=== PATIENT | male | born 1930 ===

== ENCOUNTER 2017-09-12 09:11 | Inpatient (IN) | payer MEDICARE ==
[2017-09-12 09:15] VITALS: BMI 30.1
--- NOTE | 2017-09-12 09:44 | ED PDOC ---
Syncope/Near Syncope/Dizziness Time Seen by Provider: 09/12/17 09:17 Chief Complaint (Nursing): Syncope Chief Complaint (Provider): Syncope History Per: Patient History/Exam Limitations: no limitations Onset/Duration Of Symptoms: Days Current Symptoms Are (Timing): Still Present Additional Complaint(s): 87 year old male with a past medical history of diabetes, HTN, and high cholesterol presents to the ED after a syncopal episode this morning, witnessed by son at bedside. Patient suddenly put his head down on the table and passed out for about two minutes. Patient did not fall or hit his head. Patient states he took a laxative last night. Denies fever, vomiting, chest pain, and dizziness. Patient has never syncopized in the past and reports he feels much better now. PMD: Dr. Isidoro Hand Past Medical History Reviewed: Historical Data, Nursing Documentation, Vital Signs Vital Signs: Last Vital Signs Temp 97 F L 09/12/17 09:14 Pulse 92 H 09/12/17 09:14 Resp BP 121/78 09/12/17 09:14 Pulse Ox 100 09/12/17 09:14 - Medical History PMH: HTN, Hypercholesterolemia - Surgical History Surgical History: Cholecystectomy - Family History Family History: States: Unknown Family Hx - Social History Current smoker - smoking cessation education provided: No Alcohol: None Drugs: Denies - Home Medications Home Medications: Ambulatory Orders Medication Instructions Recorded Furosemide [Lasix] 40 mg PO BID 09/12/17 Ibuprofen [Ibu] 400 mg PO Q6H PRN 09/12/17 Isosorbide Mononitrate [Isosorbide 30 mg PO DAILY 09/12/17 Mononitrate ER] Tamsulosin [Flomax] 0.4 mg PO DAILY 09/12/17 Vit B12/Levomefolate/Vit B6/B2 1 tab PO DAILY 09/12/17 [Cerefolin 1 mg-5.635 mg-50 mg-5 mg] metFORMIN [glucOPHAGE] 500 mg PO BID 09/12/17 - Allergies Allergies/Adverse Reactions: Allergies Allergy/AdvReac Type Severity Reaction Status Date / Time No Known Allergies Allergy Verified 09/12/17 09:21 Review of Systems ROS Statement: Except As Marked, All Systems Reviewed And Found Negative Constitutional: Negative for: Fever Cardiovascular: Negative for: Chest Pain Gastrointestinal: Negative for: Vomiting Neurological: Positive for: Other (syncopal episode). Negative for: Dizziness Physical Exam - Reviewed Nursing Documentation Reviewed: Yes Vital Signs Reviewed: Yes - Physical Exam Appears: Positive for: Non-toxic, No Acute Distress Head Exam: Positive for: ATRAUMATIC, NORMOCEPHALIC Skin: Positive for: Normal Color, Warm, Dry Eye Exam: Positive for: EOMI, Normal appearance, PERRL ENT: Positive for: Normal ENT Inspection Neck: Positive for: Normal, Painless ROM, Supple Cardiovascular/Chest: Positive for: Regular Rate, Rhythm Respiratory: Positive for: Normal Breath Sounds Gastrointestinal/Abdominal: Positive for: Normal Exam, Soft Back: Positive for: Normal Inspection. Negative for: L CVA Tenderness, R CVA Tenderness, Vertebral Tenderness Extremity: Positive for: Normal ROM. Negative for: Deformity Neurologic/Psych: Positive for: Alert, team member II-XII (intacts), Oriented. Negative for: Motor/Sensory Deficits, Aphasia, Facial Droop - Laboratory Results Result Diagrams: 09/12/17 09:45 09/12/17 09:45 - ECG O2 Sat by Pulse Oximetry: 100 (RA) Pulse Ox Interpretation: Normal Medical Decision Making Medical Decision Making: Time: 09 Impression: syncope, Rule out cardiac and neurological disorders. rule out electrolyte abnormalities and infection. Plan: -- CT Head w/o contrast -- EKG -- BNP -- CMP -- CBC with differentials -- CXR Portable Time: 09 CXR RESULTS FINDINGS: LUNGS: The lungs are well inflated and clear. PLEURA: No significant pleural effusion identified, no pneumothorax apparent. CARDIOVASCULAR: Normal. OSSEOUS STRUCTURES: No significant abnormalities. VISUALIZED UPPER ABDOMEN: Normal. OTHER FINDINGS: None. IMPRESSION: No active pulmonary disease. Time: [address] RESULTS FINDINGS: HEMORRHAGE: No intracranial hemorrhage. BRAIN: There are moderate chronic microangiopathic changes. There is no mass, mass effect or abnormal extra-axial fluid collection. There are coarse atherosclerotic calcifications in the cavernous carotid arteries. VENTRICLES: There is moderate age-related global parenchymal volume loss and proportionate enlargement of the ventricles and cortical sulci. CALVARIUM: The skull base and calvarium are normal. PARANASAL SINUSES: Predominantly clear. MASTOID AIR CELLS: Predominantly clear. OTHER FINDINGS: None. IMPRESSION: No acute intracranial abnormality. Moderate chronic microangiopathic changes and moderate age-related global parenchymal volume loss. Time: 1053 -- Dr. Hand called to discuss patient's case. Given pts age and comorbities, it is reasonable to admit pt for observation for syncope. pt aware. pt reevaluatd, states he feels "fine". son no longer at bedside. Scribe Attestation: Documented by Sharda Blum, acting as a scribe for Dr. Margaret Dixon MD Provider Scribe Attestation: All medical record entries made by the Scribe were at my direction and personally dictated by me. I have reviewed the chart and agree that the record accurately reflects my personal performance of the history, physical exam, medical decision making, and the department course for this patient. I have also personally directed, reviewed, and agree with the discharge instructions and disposition. Disposition - Clinical Impression Clinical Impression: Syncope - Patient ED Disposition Is Patient to be Admitted: Yes Counseled Patient/Family Regarding: Studies Performed, Diagnosis - Disposition Disposition Time: 11:00 Condition: STABLE
--- NOTE | 2017-09-12 09:54 | RAD ---
HISTORY: syncope COMPARISON: 04/28/2011. FINDINGS: LUNGS: The lungs are well inflated and clear. PLEURA: No significant pleural effusion identified, no pneumothorax apparent. CARDIOVASCULAR: Normal. OSSEOUS STRUCTURES: No significant abnormalities. VISUALIZED UPPER ABDOMEN: Normal. OTHER FINDINGS: None. IMPRESSION: No active pulmonary disease.
[2017-09-12 09:56] LABS: BASO % 0.5 % (0.0-2.0); EOS # 0.1 K/uL (0.0-0.7); HEMOGLOBIN 9.8 g/dL (12.0-18.0); LYMPH # 0.9 K/uL (1.0-4.3); LYMPH % 11.2 % (20.0-40.0); MEAN CELL VOLUME 76.3 fl (80.0-94.0); MEAN CORPUSCULAR HEMOGLOBIN 24.4 pg (27.0-31.0); MONO # 0.3 K/uL (0.0-0.8); MONO % 3.8 % (0.0-10.0); NEUT # 6.7 K/uL (1.8-7.0); NEUT % 83.5 % (50.0-75.0); NRBC % 0.2 % (0.0-0.0); RBC 4.03 Mil/uL (4.40-5.90); RED CELL DISTRIBUTION WIDTH 16.1 % (11.5-14.5); WHITE BLOOD COUNT 8.1 K/uL (4.8-10.8)
[2017-09-12 10:21] LABS: ALB/GLOB RATIO 1.1 (1.0-2.1); ALBUMIN 3.7 g/dL (3.5-5.0); CALCIUM 8.5 mg/dL (8.4-10.2); GFR AFRICAN-AMERICAN > 60; GFR NON-AFRICAN AMERICAN > 60
[2017-09-12 10:24] LABS: ALT/SGPT 32 U/L (21-72); AST/SGOT 49 U/L (17-59); BLOOD UREA NITROGEN 16 mg/dl (9-20)
[2017-09-12 10:32] LABS: B-TYPE NATRIURETIC PEPTIDE 325 pg/ml (0-900)
--- NOTE | 2017-09-12 10:47 | CT ---
PROCEDURE: CT HEAD WITHOUT CONTRAST. HISTORY: Headache COMPARISON: None available. TECHNIQUE: Axial computed tomography images were obtained through the head/brain without intravenous contrast. Radiation dose: Total exam DLP = 818.89 mGy-cm. This CT exam was performed using one or more of the following dose reduction techniques: Automated exposure control, adjustment of the mA and/or kV according to patient size, and/or use of iterative reconstruction technique. FINDINGS: HEMORRHAGE: No intracranial hemorrhage. BRAIN: There are moderate chronic microangiopathic changes. There is no mass, mass effect or abnormal extra-axial fluid collection. There are coarse atherosclerotic calcifications in the cavernous carotid arteries. VENTRICLES: There is moderate age-related global parenchymal volume loss and proportionate enlargement of the ventricles and cortical sulci. CALVARIUM: The skull base and calvarium are normal. PARANASAL SINUSES: Predominantly clear. MASTOID AIR CELLS: Predominantly clear. OTHER FINDINGS: None. IMPRESSION: No acute intracranial abnormality. Moderate chronic microangiopathic changes and moderate age-related global parenchymal volume loss.
--- NOTE | 2017-09-13 00:11 | CP.PCM.HP ---
History of Present Illness - History of Present Illness History of Present Illness: This is an 87 y/o male admitted for short episode of witnessed syncope at home, Patient claims that he just had a large bm after taking a laxative prior to his syncope. Past Patient History - Past Medical History & Family History Past Medical History?: Yes - Past Social History Smoking Status: Former Smoker - CARDIAC Hx Cardiac Disorders: Yes (HTN, High cholesterol) - PULMONARY Hx Respiratory Disorders: No - NEUROLOGICAL Hx Dizziness: Yes - HEENT Hx HEENT Problems: Yes (hard of hearing) - RENAL Hx Chronic Kidney Disease: No - ENDOCRINE/METABOLIC Hx Endocrine Disorders: Yes (DM) - HEMATOLOGICAL/ONCOLOGICAL Hx Blood Disorders: No Hx AIDS: No Hx Human Immunodeficiency Virus (HIV): No - INTEGUMENTARY Hx Dermatological Problems: No - MUSCULOSKELETAL/RHEUMATOLOGICAL Hx Musculoskeletal Disorders: No Hx Falls: No - GASTROINTESTINAL Hx Constipation: Yes - GENITOURINARY/GYNECOLOGICAL Hx Genitourinary Disorders: No Hx Prostate Problems: Yes - PSYCHIATRIC Hx Psychophysiologic Disorder: No Hx Substance Use: No - SURGICAL HISTORY Hx Cholecystectomy: Yes - ANESTHESIA Hx Anesthesia: Yes Hx Anesthesia Reactions: No Hx Malignant Hyperthermia: No Has any member of the family had a problem w/ anesthesia?: No Meds Allergies/Adverse Reactions: Allergies Allergy/AdvReac Type Severity Reaction Status Date / Time No Known Allergies Allergy Verified 09/12/17 09:21 Results - Vital Signs Recent Vital Signs: Last Vital Signs Temp 98.1 F 09/12/17 20:00 Pulse 80 09/12/17 21:00 Resp 20 09/12/17 20:00 BP 152/74 H 09/12/17 20:00 Pulse Ox 100 09/12/17 20:00 - Labs Result Diagrams: 09/12/17 09:45 09/12/17 09:45 Labs: Laboratory Results - last 24 hr 09/12/17 09/12/17 09/12/17 09:39 09:45 09:45 WBC 8.1 RBC 4.03 L Hgb 9.8 L Hct 30.8 L MCV 76.3 L MCH 24.4 L MCHC 32.0 L RDW 16.1 H Plt Count 199 MPV 8.0 Neut % (Auto) 83.5 H Lymph % (Auto) 11.2 L Dale % (Auto) 3.8 Eos % (Auto) 1.0 Baso % (Auto) 0.5 Neut # (Auto) 6.7 Lymph # (Auto) 0.9 L Dale # (Auto) 0.3 Eos # (Auto) 0.1 Baso # (Auto) 0.0 Sodium 140 Potassium 4.6 Chloride 104 Carbon Dioxide 23 Anion Gap 18 BUN 16 Creatinine 0.9 Est GFR ( Amer) > 60 Est GFR (Non-Af Amer) > 60 POC Glucose (mg/dL) 181 H Random Glucose 191 H Calcium 8.5 Total Bilirubin 1.0 AST 49 ALT 32 Alkaline Phosphatase 92 Troponin I 0.0140 NT-Pro-B Natriuret Pep 325 Total Protein 7.1 Albumin 3.7 Globulin 3.4 Albumin/Globulin Ratio 1.1 09/12/17 09/12/17 15:56 21:50 WBC RBC Hgb Hct MCV MCH MCHC RDW Plt Count MPV Neut % (Auto) Lymph % (Auto) Dale % (Auto) Eos % (Auto) Baso % (Auto) Neut # (Auto) Lymph # (Auto) Dale # (Auto) Eos # (Auto) Baso # (Auto) Sodium Potassium Chloride Carbon Dioxide Anion Gap BUN Creatinine Est GFR ( Amer) Est GFR (Non-Af Amer) POC Glucose (mg/dL) 152 H 101 Random Glucose Calcium Total Bilirubin AST ALT Alkaline Phosphatase Troponin I NT-Pro-B Natriuret Pep Total Protein Albumin Globulin Albumin/Globulin Ratio
[2017-09-13] MEDS: Multivitamin With Minerals Tab PO SCH (08:40)
[2017-09-13] MEDS: Enoxaparin 40 mg Syringe SC SCH (08:40)
--- NOTE | 2017-09-13 08:44 | CARD ---
APPROVED REPORT EKG Measurement Heart [id number] <Conclusion> Normal sinus rhythm Minimal voltage criteria for LVH, may be normal variant ST & T wave abnormality, consider lateral ischemia Abnormal ECG
--- NOTE | 2017-09-13 10:58 | CP.PCM.PN ---
Subjective - Date & Time of Evaluation Date of Evaluation: 09/13/17 Time of Evaluation: 07:30 - Subjective Subjective: Patient seen and examined bedside with Dr guzmán Patient reports feeling better. denies lightheadedness, abd pain, chest pain, SOB Objective - Vital Signs/Intake and Output Vital Signs (last 24 hours): Temp Pulse Resp BP Pulse Ox 97.9 F 74 18 151/72 H 100 09/13/17 08:02 09/13/17 08:02 09/13/17 08:02 09/13/17 08:02 09/13/17 08:02 - Medications Medications: Current Medications Acetaminophen (Tylenol 325mg Tab) 325 mg PO Q6 PRN PRN Reason: Pain, Mild (1-3) Enoxaparin Sodium (Lovenox) 40 mg SC DAILY [facility] PRN Reason: Protocol Last Admin: 09/13/17 08:40 Dose: 40 mg Isosorbide Mononitrate (Imdur Er) 30 mg PO DAILY [facility] Last Admin: 09/13/17 08:40 Dose: 30 mg Multivitamins/Minerals (Therapeutic-M Tab) 1 tab PO DAILY [facility] Last Admin: 09/13/17 08:40 Dose: 1 tab Sitagliptin Phosphate (Januvia) 50 mg PO DAILY [facility] Tamsulosin HCl (Flomax) 0.4 mg PO DAILY [facility] Last Admin: 09/13/17 08:40 Dose: 0.4 mg - Labs Labs: 09/12/17 09:45 09/12/17 09:45 - Constitutional Appears: Non-toxic, No Acute Distress - Head Exam Head Exam: ATRAUMATIC, NORMOCEPHALIC - Eye Exam Eye Exam: Normal appearance - ENT Exam ENT Exam: Mucous Membranes Moist - Neck Exam Neck Exam: Normal Inspection - Respiratory Exam Respiratory Exam: Clear to Ausculation Bilateral. absent: Rales, Rhonchi, Wheezes - Cardiovascular Exam Cardiovascular Exam: REGULAR RHYTHM, +S1, +S2 - GI/Abdominal Exam GI & Abdominal Exam: Soft, Normal Bowel Sounds. absent: Tenderness - Extremities Exam Extremities Exam: Normal Inspection - Neurological Exam Neurological Exam: Alert, Awake, Oriented x3 - Psychiatric Exam Psychiatric exam: Normal Affect, Normal Mood - Skin Skin Exam: Pallor Assessment and Plan (1) Syncope Assessment & Plan: may be 2/2 vasovagal reaction -Carotid Us, Echo -cardio consult -Neuro consult Status: Acute (2) Anemia Assessment & Plan: 2/2 iron deficiency low iron, low ferritin -sulfate ferrous BID Status: Acute (3) DVT prophylaxis Assessment & Plan: lovenox 40 mg sc daily Status: Acute
[2017-09-13 12:19] LABS: HEMOGLOBIN 10.6 g/dL (12.0-18.0); MEAN CELL VOLUME 75.5 fl (80.0-94.0); MEAN CORPUSCULAR HEMOGLOBIN 24.1 pg (27.0-31.0); RBC 4.38 Mil/uL (4.40-5.90); RED CELL DISTRIBUTION WIDTH 15.5 % (11.5-14.5)
[2017-09-13 12:23] LABS: BLOOD UREA NITROGEN 14 mg/dl (9-20); CALCIUM 8.9 mg/dL (8.4-10.2); GFR AFRICAN-AMERICAN > 60; GFR NON-AFRICAN AMERICAN > 60
[2017-09-13 12:39] LABS: IRON 27 ug/dL (49-181)
[2017-09-13 12:48] LABS: % IRON SATURATION 6 % (20-55); TOTAL IRON BINDING CAPACITY 423 ug/dL (250-450)
[2017-09-13 12:57] LABS: FERRITIN 11.2 ng/Ml (17.9-464)
--- NOTE | 2017-09-13 21:18 | CP.PCM.CON ---
History of Present Illness - History of Present Illness History of Present Illness: I was asked to evaluate patient by Dr guzmán. patient is a 87 year old male with PMH HTn, hypercholesterolemia who presents with dizziness. The patient has baseline dementia and is a poor histporian. By report he was walking when he became dizzy and had near synxope. The patient denies chest pain and dyspnea. Review of Systems - Review of Systems Systems not reviewed;Unavailable: Altered Mental Status Past Patient History - Past Medical History & Family History Past Medical History?: Yes - Past Social History Smoking Status: Former Smoker - CARDIAC Hx Cardiac Disorders: Yes (HTN, High cholesterol) - PULMONARY Hx Respiratory Disorders: No - NEUROLOGICAL Hx Dizziness: Yes - HEENT Hx HEENT Problems: Yes (hard of hearing) - RENAL Hx Chronic Kidney Disease: No - ENDOCRINE/METABOLIC Hx Endocrine Disorders: Yes (DM) - HEMATOLOGICAL/ONCOLOGICAL Hx Blood Disorders: No Hx AIDS: No Hx Human Immunodeficiency Virus (HIV): No - INTEGUMENTARY Hx Dermatological Problems: No - MUSCULOSKELETAL/RHEUMATOLOGICAL Hx Musculoskeletal Disorders: No Hx Falls: No - GASTROINTESTINAL Hx Constipation: Yes - GENITOURINARY/GYNECOLOGICAL Hx Genitourinary Disorders: No Hx Prostate Problems: Yes - PSYCHIATRIC Hx Psychophysiologic Disorder: No Hx Substance Use: No - SURGICAL HISTORY Hx Cholecystectomy: Yes - ANESTHESIA Hx Anesthesia: Yes Hx Anesthesia Reactions: No Hx Malignant Hyperthermia: No Has any member of the family had a problem w/ anesthesia?: No Meds Allergies/Adverse Reactions: Allergies Allergy/AdvReac Type Severity Reaction Status Date / Time No Known Allergies Allergy Verified 09/12/17 09:21 - Medications Medications: Current Medications Acetaminophen (Tylenol 325mg Tab) 325 mg PO Q6 PRN PRN Reason: Pain, Mild (1-3) Enoxaparin Sodium (Lovenox) 40 mg SC DAILY [facility] PRN Reason: Protocol Last Admin: 09/13/17 08:40 Dose: 40 mg Ferrous Sulfate (Feosol) 325 mg PO BID [facility] Last Admin: 09/13/17 17:15 Dose: 325 mg Isosorbide Mononitrate (Imdur Er) 30 mg PO DAILY [facility] Last Admin: 09/13/17 08:40 Dose: 30 mg Multivitamins/Minerals (Therapeutic-M Tab) 1 tab PO DAILY [facility] Last Admin: 09/13/17 08:40 Dose: 1 tab Sitagliptin Phosphate (Januvia) 50 mg PO DAILY [facility] Last Admin: 09/13/17 13:16 Dose: 50 mg Tamsulosin HCl (Flomax) 0.4 mg PO DAILY [facility] Last Admin: 09/13/17 08:40 Dose: 0.4 mg Physical Exam - Constitutional Appears: Non-toxic - Head Exam Head Exam: NORMAL INSPECTION - Eye Exam Eye Exam: Normal appearance - ENT Exam ENT Exam: Mucous Membranes Moist - Neck Exam Neck exam: Positive for: Full Rom - Respiratory Exam Respiratory Exam: NORMAL BREATHING PATTERN - Cardiovascular Exam Cardiovascular Exam: REGULAR RHYTHM - GI/Abdominal Exam GI & Abdominal Exam: Normal Bowel Sounds - Rectal Exam Rectal Exam: Deferred - Extremities Exam Extremities exam: Negative for: pedal edema - Back Exam Back exam: NORMAL INSPECTION - Neurological Exam Neurological exam: Alert, Oriented x3 - Psychiatric Exam Psychiatric exam: Normal Affect - Skin Skin Exam: Normal Color Results - Vital Signs Recent Vital Signs: Last Vital Signs Temp 98 F 09/13/17 20:51 Pulse 110 H 09/13/17 20:51 Resp 18 09/13/17 20:51 BP 157/82 H 09/13/17 20:51 Pulse Ox 97 09/13/17 20:51 - Labs Result Diagrams: 09/13/17 12:01 09/13/17 12:01 Labs: Laboratory Results - last 24 hr 09/12/17 09/13/17 09/13/17 21:50 05:02 10:36 WBC RBC Hgb Hct MCV MCH MCHC RDW Plt Count Sodium Potassium Chloride Carbon Dioxide Anion Gap BUN Creatinine Est GFR ( Amer) Est GFR (Non-Af Amer) POC Glucose (mg/dL) 101 102 182 H Random Glucose Calcium Iron TIBC % Saturation Ferritin Vitamin B12 09/13/17 09/13/17 09/13/17 12:01 12:01 12:01 WBC 5.0 RBC 4.38 L Hgb 10.6 L Hct 33.1 L MCV 75.5 L MCH 24.1 L MCHC 32.0 L RDW 15.5 H Plt Count 192 Sodium 140 Potassium 3.9 Chloride 101 Carbon Dioxide 26 Anion Gap 17 BUN 14 Creatinine 0.9 Est GFR ( Amer) > 60 Est GFR (Non-Af Amer) > 60 POC Glucose (mg/dL) Random Glucose 102 Calcium 8.9 Iron 27 L TIBC 423 % Saturation 6 L Ferritin 11.2 L Vitamin B12 306 09/13/17 16:13 WBC RBC Hgb Hct MCV MCH MCHC RDW Plt Count Sodium Potassium Chloride Carbon Dioxide Anion Gap BUN Creatinine Est GFR ( Amer) Est GFR (Non-Af Amer) POC Glucose (mg/dL) 93 Random Glucose Calcium Iron TIBC % Saturation Ferritin Vitamin B12 - EKG Data EKG Interpreted by: Myself EKG shows normal: Sinus rhythm Assessment & Plan (1) Syncope Assessment and Plan: recommend evaluation of left vetnricular function with echocardiogram. will monitor on telemetry Status: Acute (2) HTN (hypertension) Assessment and Plan: blood pressure control Status: Acute
--- NOTE | 2017-09-14 05:47 | CON ---
DATE: 09/13/2017 CHIEF COMPLAINT: Syncope. HISTORY OF PRESENT ILLNESS: An 87-year-old man with history of diabetes type 2, hypertension, hypercholesterolemia, who presented after syncopal episode, witnessed by his son. Apparently, the patient put his head down on the table and passed out for a few minutes. The patient did not recall of hitting or falling his head. He had taken a laxative the night prior. He denies any diarrhea at this time. He never had any seizures or any history of syncope in the past. Currently, he is walking around without any difficulty and he has tried to twice, given low dose Xanax to prevent him from being anxious. PAST MEDICAL HISTORY: History of hypertension, hypercholesterolemia, type 2 diabetes mellitus. CAT scan of the head showed no acute intracranial abnormality. PAST SURGICAL HISTORY: Cholecystectomy. MEDICATIONS: Reviewed by nurse practitioner, see reconciliation sheet. REVIEW OF SYSTEMS: A 14-point review of systems is negative except in the HPI. FAMILY HISTORY: Noncontributory. PHYSICAL EXAMINATION: GENERAL: The patient is sitting up in bed, in no acute distress. HEENT: Atraumatic and normocephalic. PERRLA. Extraocular muscles intact. NECK: Supple. No JVD. No adenopathy noted. LUNGS: Clear to auscultation. No adventitious sounds. HEART: S1 and S2. Normal rate and rhythm. No murmurs, rubs, or gallops. ABDOMEN: Soft, nontender and nondistended. Bowel sounds are present. EXTREMITIES: No clubbing, no cyanosis. Peripheral pulses 2+ felt bilaterally. NEUROLOGIC: The patient is alert and oriented to person, place, month, and year. Speech is fluent without any errors. Cranial nerves II-XII are intact. Motor exam: Moves all extremities equally. Toes are downgoing bilaterally. Sensory exam; light touch, pinprick, proprioception, and vibration are intact. DTRs are 2+ throughout. Coordination: [id number] intact. Gait is deferred for now. LABORATORY DATA: Sodium 140, potassium 3.9, chloride 101, and carbon dioxide of 29, BUN of 14, creatinine of 0.9, and random glucose of 102. ASSESSMENT AND PLAN: Syncope is likely secondary to vasovagal episode from one episode of laxative use and likely seizure disorder. Neuro exam is currently nonfocal. At this point, he is stable from my standpoint. He is mildly anxious and given a low dose of Xanax 0.25 x1 dose today. At this time, monitor electrolytes and correct accordingly and avoid hypertensive events. Continue with ferrous sulfate for his iron deficiency anemia and to keep his blood sugars between 140 to 180. He is clinically stable at this point. Thank you for this consult. Brent Crawford MD
[2017-09-14] MEDS: Enoxaparin 40 mg Syringe SC SCH (09:24)
[2017-09-14] MEDS: Multivitamin With Minerals Tab PO SCH (09:24)
--- NOTE | 2017-09-14 12:35 | CP.PCM.PN ---
Subjective - Date & Time of Evaluation Date of Evaluation: 09/14/17 Time of Evaluation: 07:15 - Subjective Subjective: Patient seen and examined bedside with Dr guzmán Patient had episode of confusion and agitation last night. On 1:1. AAO x3 now. Denies lightheadedness, abd pain, chest pain, SOB. 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 Echo pending Objective - Vital Signs/Intake and Output Vital Signs (last 24 hours): Temp Pulse Resp BP Pulse Ox 97.7 F 71 18 136/71 98 09/14/17 07:49 09/14/17 09:00 09/14/17 07:49 09/14/17 07:49 09/14/17 07:49 - Medications Medications: Current Medications Acetaminophen (Tylenol 325mg Tab) 325 mg PO Q6 PRN PRN Reason: Pain, Mild (1-3) Enoxaparin Sodium (Lovenox) 40 mg SC DAILY [facility] PRN Reason: Protocol Last Admin: 09/14/17 09:24 Dose: Not Given Ferrous Sulfate (Feosol) 325 mg PO BID [facility] Last Admin: 09/14/17 09:24 Dose: Not Given Isosorbide Mononitrate (Imdur Er) 30 mg PO DAILY [facility] Last Admin: 09/14/17 09:24 Dose: Not Given Multivitamins/Minerals (Therapeutic-M Tab) 1 tab PO DAILY [facility] Last Admin: 09/14/17 09:24 Dose: Not Given Sitagliptin Phosphate (Januvia) 50 mg PO DAILY [facility] Last Admin: 09/14/17 09:24 Dose: Not Given Tamsulosin HCl (Flomax) 0.4 mg PO DAILY [facility] Last Admin: 09/14/17 09:24 Dose: Not Given - Labs Labs: 09/13/17 12:01 09/13/17 12:01 - Constitutional Appears: No Acute Distress - Head Exam Head Exam: ATRAUMATIC, NORMOCEPHALIC - Eye Exam Eye Exam: Normal appearance - ENT Exam ENT Exam: Mucous Membranes Moist - Respiratory Exam Respiratory Exam: Clear to Ausculation Bilateral. absent: Rhonchi, Wheezes - Cardiovascular Exam Cardiovascular Exam: REGULAR RHYTHM, +S1, +S2 - GI/Abdominal Exam GI & Abdominal Exam: Soft, Normal Bowel Sounds. absent: Tenderness - Extremities Exam Extremities Exam: Normal Inspection - Back Exam Back Exam: NORMAL INSPECTION - Psychiatric Exam Psychiatric exam: Normal Affect, Normal Mood - Skin Skin Exam: Intact Assessment and Plan - Assessment and Plan (Free Text) Plan: Assessment and Plan (1) Syncope Assessment & Plan: may be 2/2 vasovagal reaction - Echo pending -cardio consult appreciated -Neuro consult appreciated Status: Acute (2) Anemia Assessment & Plan: 2/2 iron deficiency low iron, low ferritin -sulfate ferrous BID Status: Acute (3) DVT prophylaxis Assessment & Plan: lovenox 40 mg sc daily Status: Acute
[2017-09-14 15:58] VITALS: RESP 20
--- NOTE | 2017-09-14 16:18 | CARD ---
APPROVED REPORT EXAM: Two-dimensional and M-mode echocardiogram with Doppler and color Doppler. Other Information Quality : GoodRhythm : NSR INDICATION Dyspnea 2D DIMENSIONS IVSd1.13 (0.7-1.1cm)LVDd5.23 (3.9-5.9cm) LVOT Diameter2.13 (1.8-2.4cm)PWd0.96 (0.7-1.1cm) IVSs1.68 (0.8-1.2cm)LVDs3.09 (2.5-4.0cm) FS (%) 40.8 %PWs1.59 (0.8-1.2cm) M-Mode DIMENSIONS Left Atrium (MM)3.38 (2.5-4.0cm)IVSd1.15 (0.7-1.1cm) Aortic Root3.59 (2.2-3.7cm)LVDd5.41 (4.0-5.6cm) Aortic Cusp Exc.2.15 (1.5-2.0cm)PWd1.03 (0.7-1.1cm) IVSs1.65 cmFS (%) 42 % LVDs3.15 (2.0-3.8cm)PWs1.68 cm Aortic Valve AoV Peak Ccebbfxd323.9cm/sAoV VTI34.5cmAO Peak GR.16mmHg LVOT Peak Qubjbukf31.2cm/sLVOT VTI14.21cmAO Mean GR.8mmHg CLIFFORD (VMAX)0.02dc7XTL (VTI)0.81cm2 Mitral Valve MV E Luacelzg26.8cm/sMV DECEL [id number] A Wpvxtsip83.9cm/s MV NBM27wmF/A ratio0.9MVA (PHT)5.09cm2 TDI Lateral E' Peak V6.84cm/sMedial E' Peak V5.54cm/sE/Lateral E'10.9 E/Medial E'13.5 Pulmonary Valve PV Peak Obkckdyc48.8cm/s LEFT VENTRICLE The left ventricle is normal in size. There is normal left ventricular wall thickness. The left ventricular function is normal. The left ventricular ejection fraction is - 65-70%. There is normal LV segmental wall motion. Transmitral Doppler flow pattern is Grade I-abnormal relaxation pattern. No left ventricle thrombus noted on this study. There is no ventricular septal defect visualized. There is no left ventricular aneurysm. There is no mass noted in the left ventricle. RIGHT VENTRICLE The right ventricle is normal size. There is normal right ventricular wall thickness. The right ventricular systolic function is normal. ATRIA The left atrium size is normal. There is no thrombus suspected in the left atrium. The right atrium size is normal. The interatrial septum is intact with no evidence for an atrial septal defect. AORTIC VALVE The aortic valve is mildly to moderately calcified. There is mild aortic regurgitation. There is moderate valvular aortic stenosis. Calculated aortic valve area is 1.49 cm2 with maximum pressure gradient of 17 mmHg and mean pressure gradient of 8.4 mmHg. MITRAL VALVE The mitral valve leaflets are mildly thickened. There is no evidence of mitral valve prolapse. There is no mitral valve stenosis. Mitral regurgitation is mild. TRICUSPID VALVE The tricuspid valve is normal in structure. There is no tricuspid valve regurgitation noted. There is no tricuspid valve prolapse or vegetation. There is no tricuspid valve stenosis. PULMONIC VALVE The pulmonary valve is normal in structure. There is no pulmonic valvular regurgitation. GREAT VESSELS The aortic root is normal in size. The IVC is normal in size and collapses >50% with inspiration. PERICARDIAL EFFUSION The pericardium appears normal. There is no pleural effusion. <Conclusion> The left ventricle is normal in size and wall thickness. The left ventricular function is normal. The left ventricular ejection fraction is - 65-70%. The left atrium, right ventricle and right atrium are normal in size. There is moderate aortic stenosis. There is mild aortic regurgitation and mild mitral regurgitation.
--- NOTE | 2017-09-14 17:59 | CP.PCM.PN ---
Subjective - Date & Time of Evaluation Date of Evaluation: 09/14/17 Time of Evaluation: 18:55 - Subjective Subjective: echocardiogram reviewed. Normal left ventricular function and no regional wall motion abnormalities. Unlikley cardiac cause of symptoms. Objective - Vital Signs/Intake and Output Vital Signs (last 24 hours): Temp Pulse Resp BP Pulse Ox 98.5 F 84 20 122/67 98 09/14/17 15:57 09/14/17 15:57 09/14/17 15:57 09/14/17 15:57 09/14/17 15:57 - Medications Medications: Current Medications Acetaminophen (Tylenol 325mg Tab) 325 mg PO Q6 PRN PRN Reason: Pain, Mild (1-3) Enoxaparin Sodium (Lovenox) 40 mg SC DAILY [facility] PRN Reason: Protocol Last Admin: 09/14/17 09:24 Dose: Not Given Ferrous Sulfate (Feosol) 325 mg PO BID [facility] Last Admin: 09/14/17 17:25 Dose: 325 mg Isosorbide Mononitrate (Imdur Er) 30 mg PO DAILY [facility] Last Admin: 09/14/17 09:24 Dose: Not Given Multivitamins/Minerals (Therapeutic-M Tab) 1 tab PO DAILY [facility] Last Admin: 09/14/17 09:24 Dose: Not Given Sitagliptin Phosphate (Januvia) 50 mg PO DAILY [facility] Last Admin: 09/14/17 09:24 Dose: Not Given Tamsulosin HCl (Flomax) 0.4 mg PO DAILY [facility] Last Admin: 09/14/17 09:24 Dose: Not Given - Labs Labs: 09/13/17 12:01 09/13/17 12:01 Assessment and Plan (1) Syncope Status: Acute (2) HTN (hypertension) Status: Acute
[2017-09-14 19:36] VITALS: BP 169/82; PULSE 94; TEMP 97.9; O2SAT 100
== END 2017-09-14 20:50 | disposition home or self-care (01) | DRG 312 ==
LOC: H.ER 09:11 → H.ERHOLD 11:00 → H.TEL 14:28 → OBSVTOIN 09-14 16:00
PROVIDERS: ADMIT Family Medicine; ATTEND Family Medicine
DX: R55 Syncope and collapse (principal); T47.4X5A Adverse effect of other laxatives, initial encounter; D50.9 Iron deficiency anemia, unspecified; E11.9 Type 2 diabetes mellitus without complications; I10 Essential (primary) hypertension; E78.00 Pure hypercholesterolemia, unspecified; Z87.891 Personal history of nicotine dependence; F03.90 Unspecified dementia, unspecified severity, without behavioral disturbance, psychotic disturbance, mood disturbance, and anxiety; H91.90 Unspecified hearing loss, unspecified ear